=== PATIENT | female | born 1990 | race Asian ===

== ENCOUNTER 2018-02-24 19:24 | Inpatient (IN) | payer MEDICAID ==
[~2018-02-24] VITALS: Ht 165.1 cm; Wt 58.1 kg
[2018-02-24] MEDS ORDERED: NALBUPHINE 10 MG/ML AMP IVP PRN (20:50)
[2018-02-24] MEDS ORDERED: PROMETHAZINE 25 MG/ML VIAL IVP PRN (20:50)
[2018-02-24] MEDS ORDERED: METHYLERGONOVINE 0.2 MG/ML AMP IM PRN (20:50)
[2018-02-24] MEDS ORDERED: OXYTOCIN 20 UNITS in LACTATED RINGERS 1,000 ML IV SCH (20:50)
[2018-02-24] MEDS ORDERED: CLINDAMYCIN 900 MG in DEXTROSE 5% 100 ML IV SCH (21:00)
[2018-02-24] MEDS ORDERED: CLINDAMYCIN 900 MG/6 ML VIAL IV ONE (21:26)
[2018-02-24 21:30] LABS: BASOPHILS % (AUTO) 0.3 % (0.0-2.0); EOSINOPHILS # (AUTO) 0.1 K/uL (0-0.4); EOSINOPHILS % (AUTO) 0.7 % (0.0-4.0); HEMATOCRIT 35.8 % (36-48); HEMOGLOBIN 12.1 g/dL (12.0-16.0); LYMPHOCYTES # (AUTO) 1.8 K/uL (2.5-16.5); LYMPHOCYTES % (AUTO) 18.7 % (20.5-51.1); MEAN CORPUSCULAR HEMOGLOBIN 32 pg (27-31); MEAN CORPUSCULAR HGB CONC 34 g/dL (33-37); MEAN CORPUSCULAR VOLUME 95.5 fL (80-94); MONOCYTES # (AUTO) 0.7 K/uL (0.8-1.0); MONOCYTES % (AUTO) 6.9 % (1.7-9.3); NEUTROPHILS # (AUTO) 7.2 K/uL (1.8-7.7); NEUTROPHILS % (AUTO) 73.4 % (42.2-75.2); PLATELET COUNT (AUTO) 151 K/uL (140-450); RED BLOOD CELL COUNT(AUTO) 3.75 MIL/uL (4.20-5.40); RED CELL DISTRIBUTION WIDTH 13.7 % (11.6-13.7); WHITE BLOOD COUNT (AUTO) 9.8 K/uL (4.8-10.8)
[2018-02-24] MEDS: LACTATED RINGERS 1,000 ML IV SCH ×2 (21:31→22:43)
[2018-02-24 22:14] VITALS: BP 123/64
[2018-02-24] MEDS ORDERED: PREN-546 PO (22:14)
[2018-02-24] MEDS ORDERED: FERR325E14 PO (22:14)
[2018-02-24 22:36] LABS: APPEARANCE,URINE CLEAR (CLEAR); BLOOD, URINE TRACE (NEGATIVE); COLOR,URINE YELLOW (YELLOW); UGLUCOSE NEGATIVE (NEGATIVE)
[2018-02-24 22:37] LABS: BILIRUBIN,URINE NEGATIVE (NEGATIVE); CALCIUM OXALATE CRYSTALS,UR 0-10 /HPF (None Seen); LEUKOCYTE ESTERASE ,URINE TRACE (NEGATIVE); NITRITE, URINE NEGATIVE (NEGATIVE); RBC,URINE 3-10 (FEW) /HPF (0-5)
[2018-02-24 22:38] LABS: PH,URINE 7.5 (5.0-9.0)
[2018-02-24] MEDS ORDERED: BUPIVACAINE 0.125%/NS PREMIX 250 ML ONE (22:38)
[2018-02-24] MEDS ORDERED: BUPIVACAINE 0.125%/NS PREMIX 250 ML EPI SCH (23:05)
[2018-02-24] MEDS ORDERED: OXYTOCIN 20 UNITS/LR PREMIX 1,000 ML IV ONE (23:47)
[2018-02-25] MEDS: LACTATED RINGERS 1,000 ML IV SCH (00:01)
[2018-02-25] MEDS ORDERED: OXYTOCIN 10 UNITS/ML VIAL ONE (02:25)
[2018-02-25] MEDS ORDERED: OXYTOCIN 10 UNITS/ML VIAL IM PRN (03:10)
[2018-02-25] MEDS ORDERED: TEMAZEPAM 15 MG CAP PO PRN (03:10)
[2018-02-25] MEDS ORDERED: oxyCODONE/APAP 5/325 MG 1 TAB TAB PO PRN (03:10)
[2018-02-25] MEDS ORDERED: BENZOCAINE/MENTHOL 20%-0.5% 60 GM CAN TP PRN (03:10)
[2018-02-25] MEDS ORDERED: METHYLERGONOVINE 0.2 MG/ML AMP IM PRN (03:10)
[2018-02-25] MEDS ORDERED: METHYLERGONOVINE 0.2 MG TAB PO PRN (03:10)
[2018-02-25] MEDS: HYDROcodone/APAP 5/325 MG 1 TAB TAB PO PRN (10:49)
[2018-02-25] MEDS: BETHANECHOL 25 MG TAB PO PRN ×2 (16:10→20:40)
[2018-02-25] MEDS: IBUPROFEN 800 MG TAB PO PRN (20:39)
[2018-02-25] MEDS ORDERED: OXYTOCIN 10 UNITS/ML VIAL IM SCH (21:00)
[2018-02-25] MEDS ORDERED: DOCUSATE SOD/SENNA 50/8.6 MG 1 TAB PO SCH (21:00)
[2018-02-26] MEDS: IBUPROFEN 800 MG TAB PO PRN ×2 (06:33→16:34)
[2018-02-26] MEDS: BETHANECHOL 25 MG TAB PO PRN ×2 (06:35→16:39)
[2018-02-26 07:09] LABS: HEMATOCRIT 29.4 % (36-48); HEMOGLOBIN 9.9 g/dL (12.0-16.0)
[2018-02-26 10:06] LABS: RAPID PLASMA REAGIN NON-REACTIVE (Non Reactiv)
[2018-02-26] MEDS ORDERED: DOCUSATE SOD/SENNA 50/8.6 MG 1 TAB PO SCH (21:00)
[2018-02-27] MEDS: HYDROcodone/APAP 5/325 MG 1 TAB TAB PO PRN (06:01)
== END 2018-02-27 11:30 | disposition home or self-care (01) | DRG 560 ==
LOC: MLD 19:24 → MFCC 02-25 09:45
PROVIDERS: ADMIT Obstetrics & Gynecology; ATTEND Obstetrics & Gynecology
PROC: 10D07Z6 Extraction of Products of Conception, Vacuum, Via Natural or Artificial Opening (ICD-10-PCS; principal; 2018-02-24)
PROC: 0W8NXZZ Division of Female Perineum, External Approach (ICD-10-PCS; 2018-02-24)
PROC: 3E0R3BZ Introduction of Anesthetic Agent into Spinal Canal, Percutaneous Approach (ICD-10-PCS; 2018-02-24)
PROC: 00HU33Z Insertion of Infusion Device into Spinal Canal, Percutaneous Approach (ICD-10-PCS; 2018-02-24)
PROC: 3E0234Z Introduction of Serum, Toxoid and Vaccine into Muscle, Percutaneous Approach (ICD-10-PCS; 2018-02-25)
DX: O99.824 Streptococcus B carrier state complicating childbirth (principal); Z23 Encounter for immunization; Z88.0 Allergy status to penicillin; Z37.0 Single live birth; Z3A.39 39 weeks gestation of pregnancy
CPT/HCPCS: 36415; 51702; 81001; 85018; 85025; 86592; 86886; 86900; 86901; 87086; 90715; C1758; J2590; J3490; J7060; J7120